=== PATIENT | male | born 1960 | race Caucasian/White ===

== ENCOUNTER → 2016-08-29 | Outpatient (CLI) | payer OTHER ==
[2016-08-29 10:13] LABS: Aty Lym Flag Slight; CH 31.4; CHCM 35.4; HCT 43.9 % (39.0-53.0); HDW 2.68; HGB 15.6 gm/dL (13.0-17.5); MCH 31.5 pg (25.0-35.0); MCHC 35.5 g/dL (31.0-37.0); MCV 88.8 fL (80.0-100.0); Mean Platelet Volume 6.9; RBC 4.95 m/uL (4.30-5.90); RDW 12.6 % (11.5-15.5); WBC 6.5 k/uL (3.8-10.6); WBC (Perox) 6.84
[2016-08-29 10:31] LABS: ALT 117 U/L (21-72); AST 60 U/L (17-59); Alkaline Phosphatase 141 U/L (38-126); Anion Gap 11 mmol/L; Blood Urea Nitrogen 11 mg/dL (9-20); Calcium 9.2 mg/dL (8.4-10.2); Carbon Dioxide 28 mmol/L (22-30); Chloride 102 mmol/L (98-107); Cholesterol 91 mg/dL (<200); Glucose 219 mg/dL (74-99); HDL Cholesterol 31 mg/dL (40-60); Non-African American GFR(MDRD) >60 (>60 ml/min/1.73 sqM); Potassium 4.6 mmol/L (3.5-5.1); Sodium 141 mmol/L (137-145); Total Bilirubin 0.8 mg/dL (0.2-1.3); Total Protein 6.7 g/dL (6.3-8.2); Triglycerides 154 mg/dL (<150)
[2016-08-29 10:42] LABS: Add Differential Manual Differential
[2016-08-29 10:43] LABS: Nucleated Red Blood Cells 0 /100 WBC (0-0); Polychromasia Present; Total Cells Counted 100
== END | disposition home or self-care (01) ==
LOC: LABWHC1 08:38
PROVIDERS: ATTEND Family Medicine
DX: Z00.00 Encounter for general adult medical examination without abnormal findings (principal); I10 Essential (primary) hypertension; E78.00 Pure hypercholesterolemia, unspecified; E11.65 Type 2 diabetes mellitus with hyperglycemia
CPT/HCPCS: 36415; 80053; 80061; 84153; 85025

== ENCOUNTER → 2018-12-01 | Outpatient (CLI) | payer OTHER ==
[2018-12-01 10:10] LABS: Basophils # (A) 0.1 k/uL (0-0.2); Basophils % (A) 1 %; Eosinophils # (A) 0.5 k/uL (0-0.7); Eosinophils % (A) 4 %; HCT 46.7 % (39.0-53.0); HGB 15.8 gm/dL (13.0-17.5); Lymphocytes # (A) 1.8 k/uL (1.0-4.8); Lymphocytes % (A) 18 %; MCH 30.1 pg (25.0-35.0); MCHC 33.8 g/dL (31.0-37.0); Mean Platelet Volume 6.7; Monocytes # (A) 0.6 k/uL (0-1.0); Monocytes % (A) 6 %; Neutrophils % (A) 69 %; Platelet Count 286 k/uL (150-450); RBC 5.25 m/uL (4.30-5.90); RDW 12.6 % (11.5-15.5); WBC 10.2 k/uL (3.8-10.6)
[2018-12-01 16:40] LABS: African American GFR (CKD) 115.7 (60.0-200.0); Albumin 4.5 g/dL (3.80-4.90); Albumin/Globulin Ratio 2.5 (1.60-3.17); Anion Gap 10.4 mmol/L (4.00-12.00); BUN/Creat Ratio 13.75 Ratio (12.00-20.00); Calcium 9.4 mg/dL (8.7-10.3); Carbon Dioxide 27.6 mmol/L (21.6-31.8); Chol/HDL Ratio 2.88; Globulin 1.8 g/dL (1.6-3.3); Potassium 4.5 mmol/L (3.5-5.5); Total Bilirubin 0.6 mg/dL (0.2-1.2); Total Protein 6.3 g/dL (6.2-8.2)
[2018-12-01 16:47] LABS: T4, Free (Free Thyroxine) 1.3 ng/dL (0.80-1.80)
== END ==
LOC: LABWHC1 09:14
PROVIDERS: ATTEND Family Medicine
DX: Z00.00 Encounter for general adult medical examination without abnormal findings (principal); E78.00 Pure hypercholesterolemia, unspecified; I10 Essential (primary) hypertension
CPT/HCPCS: 36415; 80053; 80061; 84153; 84439; 84443; 85025; 86803

== ENCOUNTER → 2019-03-07 | Outpatient (CLI) | payer OTHER ==
--- NOTE | 2019-03-07 15:18 | XR ---
EXAMINATION TYPE: XR chest 2V DATE OF EXAM: 03/07/2019 COMPARISON: NONE HISTORY: Hemoptysis and pneumonia. TECHNIQUE: Frontal and lateral views of the chest are obtained. FINDINGS: There is no focal air space opacity, pleural effusion, or pneumothorax seen. The cardiac silhouette size is within normal limits. Suggestion of some right lateral pleural thickening and lung level. The osseous structures are intact. IMPRESSION: Possible lateral right pleural thickening. No suspicious acute pulmonary process. Consid er further imaging workup with CT if symptoms of hemoptysis persist.
[2019-03-07 22:26] LABS: Hemoglobin A1C 5.9 % (4.0-6.0)
== END | disposition home or self-care (01) ==
LOC: RADXRMAIN 14:59
PROVIDERS: ATTEND Family Medicine
DX: R04.2 Hemoptysis (principal); R93.89 Abnormal findings on diagnostic imaging of other specified body structures; E11.9 Type 2 diabetes mellitus without complications; Z71.3 Dietary counseling and surveillance
CPT/HCPCS: 71046; 83036

== ENCOUNTER → 2020-08-12 | Outpatient (CLI) | payer OTHER ==
[2020-08-12 14:42] LABS: Basophils # (A) 0.06 X 10*3/uL (0.00-0.10); Basophils % (A) 0.9 %; Eosinophils # (A) 0.43 X 10*3/uL (0.04-0.35); Eosinophils % (A) 6.1 %; HCT 45.4 % (39.6-50.0); HGB 15.2 g/dL (13.0-17.0); Lymphocytes % (A) 27.1 %; MCH 30.6 pg (27.0-32.0); MCHC 33.5 g/dL (32.0-37.0); MCV 91.5 fL (80.0-97.0); Mean Platelet Volume 10.1 fL (9.5-12.2); Monocytes # (A) 0.65 X 10*3/uL (0.20-1.00); Monocytes % (A) 9.3 %; Neutrophils # (A) 3.94 X 10*3/uL (1.80-7.70); Neutrophils % (A) 56.3 %; Platelet Count 243 X 10*3/uL (140-440); RBC 4.96 X 10*6/uL (4.40-5.60); RDW 12.1 % (11.5-14.5)
[2020-08-12 14:51] LABS: African American GFR (CKD) 95.7 (60.0-200.0); Albumin 4.6 g/dL (3.80-4.90); Albumin/Globulin Ratio 2.3 (1.60-3.17); Calcium 9.4 mg/dL (8.7-10.3); Chol/HDL Ratio 3.43; LDL Cholesterol,Calculated 27.4 mg/dL (0.0-131.0); Non-African American GFR(CKD) 82.6 (60.0-200.0); Potassium 4.8 mmol/L (3.5-5.5); Prostate Specific Antigen 0.5 ng/mL (0.0-3.5); Total Bilirubin 0.6 mg/dL (0.3-1.2); Total Protein 6.6 g/dL (6.2-8.2); VLDL Calculation 45.6 mg/dL (5.00-40.00)
== END | disposition home or self-care (01) ==
LOC: LABWHC1 08:09
PROVIDERS: ATTEND Family Medicine
DX: Z00.00 Encounter for general adult medical examination without abnormal findings (principal); E78.00 Pure hypercholesterolemia, unspecified; E11.9 Type 2 diabetes mellitus without complications; I10 Essential (primary) hypertension
CPT/HCPCS: 36415; 80053; 80061; 84153; 84443; 85025

== ENCOUNTER → 2021-03-13 | Outpatient (CLI) | payer OTHER ==
--- NOTE | 2021-03-13 19:14 | US ---
EXAMINATION TYPE: US gallbladder DATE OF EXAM: 03/13/2021 COMPARISON: NONE CLINICAL HISTORY: 60-year-old male R10.11 ABD PAIN. Intermittent RUQ pain for 6 months. TECHNIQUE: Multiple sonographic images of the right upper quadrant are obtained. FINDINGS: EXAM MEASUREMENTS: Liver Length: 17.4 cm Gallbladder Wall: 0.2 cm CBD: 0.4 cm Right Kidney: 12.9 x 7.0 x 5.3 cm [employer] notes: Difficult exam due to patient body habitus. Pancreas: Only a small portion of the pancreatic head is seen. Remainder is obscured by bowel gas sh adowing. Liver: Borderline in size with a echogenic and attenuating parenchyma. No focal lesion is seen. Gallbladder: wnl Evidence for sonographic Evans's sign: No CBD: wnl Right Kidney: wnl IMPRESSION: 1. Borderline hepatomegaly (17.4 cm) with echogenic and attenuating liver parenchyma suggesting at le ast moderate hepatic steatosis. 2. No gallstones or biliary ductal dilatation.
== END | disposition home or self-care (01) ==
LOC: RADUSWWP 15:28
PROVIDERS: ATTEND Family Medicine
DX: K76.89 Other specified diseases of liver (principal); R16.0 Hepatomegaly, not elsewhere classified
CPT/HCPCS: 76705

== ENCOUNTER → 2021-04-25 | Outpatient (CLI) | payer OTHER ==
[2021-04-25 11:04] LABS: Basophils # (A) 0.08 X 10*3/uL (0.00-0.10); Eosinophils # (A) 0.27 X 10*3/uL (0.04-0.35); Eosinophils % (A) 3.4 %; HCT 47.7 % (39.6-50.0); HGB 15.8 g/dL (13.0-17.0); Lymphocytes # (A) 1.94 X 10*3/uL (0.90-5.00); Lymphocytes % (A) 24.7 %; MCHC 33.1 g/dL (32.0-37.0); MCV 90.5 fL (80.0-97.0); Mean Platelet Volume 9.9 fL (9.5-12.2); Monocytes # (A) 0.76 X 10*3/uL (0.20-1.00); Monocytes % (A) 9.7 %; Neutrophils # (A) 4.75 X 10*3/uL (1.80-7.70); Neutrophils % (A) 60.7 %; Platelet Count 240 X 10*3/uL (140-440); RBC 5.27 X 10*6/uL (4.40-5.60); RDW 11.9 % (11.5-14.5); WBC 7.84 X 10*3/uL (4.50-10.00)
[2021-04-25 11:18] LABS: African American GFR (CKD) 107.7 (60.0-200.0); Albumin 4.6 g/dL (3.8-4.9); Albumin/Globulin Ratio 2.06 (1.60-3.17); Anion Gap 10.6 mmol/L (10.00-18.00); BUN/Creat Ratio 13.78 Ratio (12.00-20.00); Blood Urea Nitrogen 12.5 mg/dL (9.0-27.0); Calcium 9.3 mg/dL (8.7-10.3); Carbon Dioxide 25.7 mmol/L (20.0-27.5); Globulin 2.2 g/dL (1.6-3.3); Non-African American GFR(CKD) 92.9 (60.0-200.0); Potassium 4.6 mmol/L (3.5-5.5); Total Bilirubin 0.6 mg/dL (0.30-1.20); Total Protein 6.8 g/dL (6.2-8.2)
== END | disposition home or self-care (01) ==
LOC: LABWHC1 07:18
PROVIDERS: ATTEND Family Medicine
DX: E11.9 Type 2 diabetes mellitus without complications (principal); K75.81 Nonalcoholic steatohepatitis (NASH); R10.11 Right upper quadrant pain
CPT/HCPCS: 36415; 80053; 84443; 85025

== ENCOUNTER → 2021-12-16 | Outpatient (CLI) | payer OTHER ==
[2021-12-16 14:51] LABS: ALT 53 U/L (10-49); AST 29 U/L (14-35); Albumin 4.6 g/dL (3.8-4.9); Alkaline Phosphatase 123 U/L (41-126); Bilirubin, Conjugated <0.20 mg/dL (0.20-0.40); Globulin 2.1 g/dL (1.6-3.3); Total Protein 6.7 g/dL (6.2-8.2)
[2021-12-16 17:25] LABS: Hepatitis A Antibody IgM Nonreactive (Nonreactive); Hepatitis B Core IgM Nonreactive (Nonreactive); Hepatitis B Surface Antigen Nonreactive (Nonreactive); Hepatitis C IgG Antibody Nonreactive (Nonreactive)
== END | disposition home or self-care (01) ==
LOC: LABWHC1 08:01
PROVIDERS: ATTEND Family Medicine
DX: I10 Essential (primary) hypertension (principal); R10.11 Right upper quadrant pain; K75.81 Nonalcoholic steatohepatitis (NASH); E11.9 Type 2 diabetes mellitus without complications; R80.9 Proteinuria, unspecified; E78.00 Pure hypercholesterolemia, unspecified
CPT/HCPCS: 36415; 80074; 80076

== ENCOUNTER → 2022-07-14 | Outpatient (CLI) | payer OTHER ==
[2022-07-14 10:55] LABS: Basophils # (A) 0.07 X 10*3/uL (0.00-0.10); Basophils % (A) 0.9 %; Eosinophils # (A) 0.37 X 10*3/uL (0.04-0.35); Eosinophils % (A) 4.8 %; HCT 48.2 % (39.6-50.0); Immature Grans, Automated 0.3 %; Lymphocytes # (A) 2.15 X 10*3/uL (0.90-5.00); Lymphocytes % (A) 27.7 %; MCH 29.6 pg (27.0-32.0); MCHC 33.2 g/dL (32.0-37.0); MCV 89.1 fL (80.0-97.0); Mean Platelet Volume 9.9 fL (9.5-12.2); Monocytes # (A) 0.76 X 10*3/uL (0.20-1.00); Monocytes % (A) 9.8 %; NRBC Per 100 WBC 0 /100 WBCS (0.0-0.0); Neutrophils # (A) 4.39 X 10*3/uL (1.80-7.70); Neutrophils % (A) 56.5 %; Platelet Count 240 X 10*3/uL (140-440); RBC 5.41 X 10*6/uL (4.40-5.60); RDW 12.1 % (11.5-14.5); WBC 7.76 X 10*3/uL (4.50-10.00)
[2022-07-14 11:37] LABS: Chol/HDL Ratio 3.01 Ratio
[2022-07-14 11:40] LABS: ALT 62 U/L (10-49); AST 29 U/L (14-35); African American GFR (CKD) 93.3 (60.0-200.0); Albumin 4.5 g/dL (3.8-4.9); Alkaline Phosphatase 107 U/L (41-126); BUN/Creat Ratio 14.55 Ratio (12.00-20.00); Blood Urea Nitrogen 14.7 mg/dL (9.0-27.0); Calcium 9.1 mg/dL (8.7-10.3); Carbon Dioxide 25.6 mmol/L (20.0-27.5); Chloride 105 mmol/L (96-109); Globulin 2.1 g/dL (1.6-3.3); Glucose 158 mg/dL (70-110); Non-African American GFR(CKD) 80.5 (60.0-200.0); Potassium 4.6 mmol/L (3.5-5.5); Sodium 139 mmol/L (135-145); Total Protein 6.6 g/dL (6.2-8.2)
== END | disposition home or self-care (01) ==
LOC: LABWHC1 07:17
PROVIDERS: ATTEND Family Medicine
DX: Z00.00 Encounter for general adult medical examination without abnormal findings (principal); Z12.5 Encounter for screening for malignant neoplasm of prostate; I10 Essential (primary) hypertension; E11.59 Type 2 diabetes mellitus with other circulatory complications; E11.69 Type 2 diabetes mellitus with other specified complication; E78.2 Mixed hyperlipidemia; E66.01 Morbid (severe) obesity due to excess calories; Z68.39 Body mass index [BMI] 39.0-39.9, adult; Z79.4 Long term (current) use of insulin
CPT/HCPCS: 36415; 80053; 80061; 84153; 84443; 85025

== ENCOUNTER 2022-08-13 07:47 | Day surgery (SDC) | payer OTHER ==
[2022-08-11 12:47] VITALS: BMI 38.4
[2022-08-13 08:11] VITALS: TEMP 97.5
[2022-08-13] MEDS ORDERED: LACTATED RINGERS 1,000 ML IV ONE (08:24)
[2022-08-13 08:27] LABS: Glucose,Whole Blood 91 mg/dL (70-110)
[2022-08-13] MEDS ORDERED: PROPOFOL 10 MG/ML 20 ML VIAL IV ONE (08:43)
--- NOTE | 2022-08-13 08:45 | P.GSHP ---
History of Present Illness H&P Date: 08/13/22 Chief Complaint: Screening colonoscopy This a 8-year-old male presents today for screening colonoscopy. Patient denies a significant GI complaints. Past Medical History Past Medical History: Diabetes Mellitus, Hyperlipidemia, Sleep Apnea/CPAP/BIPAP Additional Past Medical History / Comment(s): sleep apnea-NO CPAP History of Any Multi-Drug Resistant Organisms: None Reported Past Surgical History: Orthopedic Surgery Additional Past Surgical History / Comment(s): ganglion cyst, nasal surgery, RT ANKLE SX, COLONOSCOPY Past Anesthesia/Blood Transfusion Reactions: No Reported Reaction Smoking Status: Never smoker - Past Family History Sister(s) Family Medical History: Cancer Additional Family Medical History / Comment(s): REPRODUCTIVE Medications and Allergies Home Medications Medication Instructions Recorded Confirmed Type Atorvastatin [Lipitor] 40 mg PO HS 08/03/14 08/13/22 History Ibuprofen [Motrin] 800 mg PO Q6HR PRN #20 tab 08/03/14 08/13/22 Rx Insulin Glargine,Hum.rec.anlog 55 units SQ HS 08/03/14 08/13/22 History [Lantus Solostar] Loratadine [Claritin] 10 mg PO DAILY 08/03/14 08/13/22 History Dulaglutide [Trulicity] 1.5 mg SQ TU 08/11/22 08/11/22 History metFORMIN HCL [Glucophage] 850 mg PO DAILY 08/11/22 08/13/22 History lisinopriL [Zestril] 5 mg PO DAILY 08/13/22 08/13/22 History Allergies Allergy/AdvReac Type Severity Reaction Status Date / Time nickel Allergy Rash/Hives Verified 08/11/22 12:34 Surgical - Exam Vital Signs Temp Pulse Resp BP Pulse Ox 97.5 F L 87 16 155/92 97 08/13/22 08:05 08/13/22 08:05 08/13/22 08:05 08/13/22 08:05 08/13/22 08:05 - General well developed, well nourished, no distress - Eyes PERRL - ENT normal pinna - Neck no masses - Respiratory normal expansion - Cardiovascular Rhythm: regular - Abdomen Abdomen: soft, non tender Assessment and Plan Assessment: We'll perform screening colonoscopy
--- NOTE | 2022-08-13 09:04 | P.OP ---
Date of Procedure: 08/13/22 Preoperative Diagnosis: Screening colonoscopy Postoperative Diagnosis: Right colon polyp Procedure(s) Performed: Colonoscopy Anesthesia: MAC Surgeon: Hi Dickerson Pathology: other (Right colon polyp) Condition: stable Disposition: PACU Description of Procedure: The patient's placed on the endoscopy table in the lateral position. He received IV sedation. Digital rectal exam performed. This revealed no abnormalities. The flexible colonoscope was then placed patient anus and passed throughout the entire colon. The ileocecal valve was visualized. Cecum appeared normal. In the right colon there is a small sessile polyp. This removed with a cold forcep. Scope was withdrawn remainder the ascending colon, transverse colon and descending colon appeared normal. The sigmoid colon appeared normal. Scope was brought back the rectum and this was normal. Scope withdrawn for patient.
[2022-08-13 09:20] VITALS: BP 123/79; PULSE 82; RESP 16
== END 2022-08-13 09:36 | disposition home or self-care (01) ==
LOC: ORWHC2ENDO 07:47
PROVIDERS: ATTEND Surgery
DX: Z12.11 Encounter for screening for malignant neoplasm of colon (principal); D12.2 Benign neoplasm of ascending colon; E11.9 Type 2 diabetes mellitus without complications; E78.5 Hyperlipidemia, unspecified; G47.33 Obstructive sleep apnea (adult) (pediatric); Z98.890 Other specified postprocedural states; Z79.84 Long term (current) use of oral hypoglycemic drugs; Z79.899 Other long term (current) drug therapy
CPT/HCPCS: 88305; 45380; J2704

== ENCOUNTER → 2023-07-30 | Outpatient (CLI) | payer BC ==
--- NOTE | 2023-08-02 09:30 | XR ---
EXAMINATION TYPE: XR cervical spine comp DATE OF EXAM: 07/30/2023 2:07 PM CLINICAL INDICATION:Male, 63 years old with history of M5441,M542 RT low back pain. Cervicalgia.; [facility] COMPARISON: None. TECHNIQUE: The cervical spine was imaged in frontal, lateral, odontoid and bilateral oblique. FINDINGS: The osseous structures show normal alignment without evidence of an acute fracture. No significant ve rtebral body osteophytes. Mild facet joint arthritis.. The intervertebral disk spaces are preserved. Pedicles are intact. Soft tissues are within normal limits. The odontoid appears intact. IMPRESSION: 1. No fracture or dislocation. 2. Mild degenerative facet changes of the cervical spine.
--- NOTE | 2023-08-02 14:26 | XR ---
EXAMINATION TYPE: XR lumbosacral spine min 4V DATE OF EXAM: 07/30/2023 2:07 PM CLINICAL INDICATION:Male, 63 years old with history of M5441,M542 RT LBP, CERVICALGIA; [facility] COMPARISON: None TECHNIQUE: XR lumbosacral spine min 4V - Frontal, lateral , bilateral oblique and coned in L5-S1 late ral views of the spine. FINDINGS: No evidence of any acute osseous pathology. No evidence of loss of vertebral body height i s seen. Normal disc height. Moderate endplate spondylosis. There is normal alignment of the lumbar v ertebral bodies. IMPRESSION: 1. No acute fracture. 2. Mild to moderate multilevel endplate spondylosis.
== END | disposition home or self-care (01) ==
LOC: RADXRYALE 13:38
PROVIDERS: ATTEND Family Medicine
DX: M47.22 Other spondylosis with radiculopathy, cervical region (principal); M47.26 Other spondylosis with radiculopathy, lumbar region
CPT/HCPCS: 72050; 72110

== ENCOUNTER → 2023-11-03 | Outpatient (CLI) | payer BC ==
--- NOTE | 2023-12-07 13:48 | MR ---
Site ID synapse default Patient Yosef Pulliam ID [id number] Age/Gender: 63Y, M Order # N/A Procedure MR CERVICAL & LUMBAR SPINE WO CON Date 11/03/2023 7:27:32 PM EXAMINATION TYPE: MR contreras/lsbecky wo con DATE OF EXAM: 11/15/2023 COMPARISON: Cervical spine radiograph 07/30/2023, lumbosacral spine radiograph 07/30/2023 HISTORY: Neck and lower back pain, bilateral upper extremity and lower extremity radiculopathy. TECHNIQUE: Multiplanar, multisequence imaging of the cervical and lumbar spine is performed without I V contrast. CERVICAL SPINE: FINDINGS: Alignment: The cervical vertebral bodies have preserved heights. Alignment is within normal limits gi radha patient positioning. Bones: Bone signal is within normal limits. Cord: The spinal cord is unremarkable with regards to their signal intensity and morphology. Discs: Minimal multilevel disc desiccation is present. C2-C3: No significant disc pathology. The spinal canal is patent. No neural foraminal stenosis. C3-C4: Central disc bulge with minimal effacement of the anterior thecal sac. No neural foraminal st enosis. C4-C5: Central disc bulge with minimal effacement of the anterior thecal sac. No neural foraminal st enosis. C5-C6: No significant disc pathology. The spinal canal is patent. No neural foraminal stenosis. C6-C7: Central disc bulge with minimal effacement of the anterior thecal sac. No neural foraminal st enosis. C7-T1: No significant disc pathology. The spinal canal is patent. No neural foraminal stenosis. Other: None. IMPRESSION: 1. No evidence for disc herniation or significant spinal canal stenosis. 2. Minimal multilevel disc degeneration. LUMBAR SPINE: FINDINGS: The lumbar vertebral bodies do have preserved heights. Straightening of the normal lumbar lordosis. Grade 1 anterolisthesis of L4 on L5. No pars defect identified. Mild disc desiccation at L4 -L5. Anterior osteophyte at L4-L5. Type I Modic changes involving the anterior superior endplate of t he L4 vertebral body. The conus medullaris and the distal spinal cord do appear unremarkable with reg ards to their signal intensity and morphology. L1-L2: No significant disc pathology is identified. The spinal canal and neural foramen are patent. L2-L3: No significant disc pathology is identified. The spinal canal and neural foramen are patent. L3-L4: No significant disc pathology is identified. The spinal canal and neural foramen are patent. L4-L5: Grade 1 anterolisthesis with uncovering of the disc. Broad-based disc bulge with ligamentum fl avum buckling and bilateral facet arthropathy contribute to mild to moderate central canal stenosis. Mild left and [id number]-dlumswyo right neuroforaminal stenosis. L5-S1: The intervertebral disc appears round on its contour posteriorly without significant mass eff ect upon the thecal sac. Facet joints are enlarged. Neural canals do remain patent. Other significant findings: None. IMPRESSION: 1. L4-L5 grade 1 anterolisthesis with broad-based disc bulge and ligamentum flavum buckling contribu ting to [id number] central canal stenosis. Bilateral facet arthropathy demonstrated at this lev el with mild left and zvik-qc-vlyndofg right neuroforaminal stenosis. 2. No disc herniation identified.
== END | disposition home or self-care (01) ==
LOC: RADMRIMAIN 19:30
PROVIDERS: ATTEND Family Medicine
DX: M51.16 Intervertebral disc disorders with radiculopathy, lumbar region (principal); M43.16 Spondylolisthesis, lumbar region; M48.061 Spinal stenosis, lumbar region without neurogenic claudication
CPT/HCPCS: 72141; 72148

== ENCOUNTER → 2024-01-06 | Outpatient (CLI) | payer BC ==
[2024-01-06 09:02] VITALS: BP 122/83; PULSE 95; RESP 16; TEMP 97.1
--- NOTE | 2024-01-06 13:56 | P.PAINPG ---
PQRS Measure Charge Sheet Comment: HISTORY OF PRESENT ILLNESS: A 63 yr old male as a referral from Dr Lacey presents today w severe and chronic LBP > 3 mo secondary to radiculopathy, spondylosis and facet arthropathy without myelopathy for evaluation. Pt states pain level is provoked at 9 /10 in intensity, constant, localized in the lower lumbar spine, predominantly axial, achy in character w occasional shooting pain towards the L hip. Pain is provoked by lifting. Pain is alleviated by PT x 4 wks which ended in Sep 2023, physician guided home exercises 4 times weekly since Sep 2023, medications (Ibu), heat, manual massage, use of a LSO, repositioning and rest . PMH: OA, NIDDM II, Hyperlipidemia, TIFFANIE PSH: Colonoscopy (2022), Nasal Surgery, R Ankle Surgery, Ganglion Cystectomy SH: Negative x3 FH: Sis- Reproductive CA All: See list Meds: See list REVIEW OF ORGAN SYSTEMS: CONSTITUTIONAL: No fevers or chills. No recent weight loss. NEUROLOGICAL: + numbness and tingling along the distal extremities. No seizure disorders or headaches. MUSCULOSKELETAL: + pain PSYCHIATRIC: Denies current depression or suicidal thoughts. Physical Examinations : Constitutional : Cooperative , not in acute distress . Neurologic : Cranial nerve II to XII intact. No focal ne urological deficits. Psychiatric : alert & oriented x 3. Matching mood & appropriate affect. Judgment & insight intact. Musculoskeletal : Cervical Spine Motor strength in the deltoid and biceps: Normal right side. Normal Left side Motor strength biceps and the wrist extensors: Normal right side . Normal left side Motor strength in the triceps muscle: Normal right side. Normal left side Deep tendon reflexes: Normal at the biceps. Normal at Brachioradialis. Normal at triceps Vertebral body tenderness to deep pa lpation over Cervical facet loading test: positive bilaterally Spurling test: positive bilaterally Neck distraction test: positive bilaterally Kate sign: positive bilaterally Lumbar spine Motor strength lower extremities ,thigh and legs 5/5 Right side , 5/5 Left side Deep tendon reflexes : Normal Knee Jerk. Normal Ankle Jerk Vertebral body tenderness over L4 Hinton Test positive L L4-L5 Lumbar facet Loading Test: positive Right / positive Left Range of motion of the lumbar spine Flexion 30 degrees, extension 10 degrees Straight Leg Raise test: Left/ Right positive at degrees Yessica test: positive right / positive left. Severe tenderness over the Sacroiliac joint on the Right / Left sides Gaenslen test: positive bilaterally Seated flexion test: positive bilaterally. Sacral spine : Severe tenderness over the Sacroiliac joint: right side / left side Range of motion: Flexion of the lumbar spine <60 degrees Range of motion: Extension of the lumbar spine <20 degrees Gaenslen's Test positive Yessica test: positive right side / left side Thigh Thrust Test Sacral Thrust Test Imaging: MRI non contrast of cervical & lumbar spine from 11/03/23 reviewed Assessment/ Plan : C6-C7 radiculopathy, L4-L5 radiculopathy w mod spinal stenosis Recommendation of L TFESI L4-L5 #1. Risks, benefits of procedure discussed and patient verbalized understanding. Admits to anti- coagulant use or medical history of diabetes. Protocol for discontinuation/ continuation of medications jeffry procedure discussed. All questions answered. I have spent greater than 30 minutes on patient care today. Dr Blair was available by phone for the evaluation of this patient. The time was used to review the medical records including relevant urine studies and Prescription history (MAPs), review of the available imaging, evaluation and examination of the patient, coordination of care with the medical staff and if applicable referring physicians, as well as creation of the medical record PQRS Narrative: Smoking Status Never smoker Home Medications: Ambulatory Orders Atorvastatin [Lipitor] 40 mg PO HS 08/03/14 Ibuprofen [Motrin] 800 mg PO Q6HR PRN #20 tab 08/03/14 Insulin Glargine,Hum.rec.anlog [Lantus Solostar] 55 units SQ 08/03/14 Loratadine [Claritin] 10 mg PO DAILY 08/03/14 Dulaglutide [Trulicity] 1.5 mg SQ TU 08/11/22 metFORMIN HCL [Glucophage] 850 mg PO DAILY 08/11/22 lisinopriL [Zestril] 5 mg PO DAILY 08/13/22 Controlled Substance Measures - Controlled Substance Measures Is patient prescribed a controlled substance at discharge?: No
== END ==
LOC: PNWHC3 07:28
PROVIDERS: ATTEND Specialist
DX: M51.16 Intervertebral disc disorders with radiculopathy, lumbar region (principal); M48.02 Spinal stenosis, cervical region; M48.061 Spinal stenosis, lumbar region without neurogenic claudication; Z91.09 Other allergy status, other than to drugs and biological substances
CPT/HCPCS: 99211

== ENCOUNTER → 2024-04-21 | Outpatient (CLI) | payer BC ==
[2024-04-21 15:13] LABS: ALT 22 U/L (10-49); AST 19 U/L (14-35); Albumin 4.7 g/dL (3.8-4.9); Albumin/Globulin Ratio 1.96 Ratio (1.60-3.17); Alkaline Phosphatase 112 U/L (41-126); Blood Urea Nitrogen 13.5 mg/dL (9.0-27.0); Calcium 9.9 mg/dL (8.7-10.3); Carbon Dioxide 24.8 mmol/L (21.6-31.8); Chloride 104 mmol/L (96-109); Chol/HDL Ratio 5.11 Ratio; Globulin 2.4 g/dL (1.6-3.3); Glucose 90 mg/dL (70-110); LDL Cholesterol,Calculated 101.8 mg/dL (0.0-131.0); Potassium 4.6 mmol/L (3.5-5.5); Sodium 140 mmol/L (135-145); Total Bilirubin 0.7 mg/dL (0.3-1.2); Total Protein 7.1 g/dL (6.2-8.2)
== END | disposition home or self-care (01) ==
LOC: LABWHC1 11:58
PROVIDERS: ATTEND Family Medicine
DX: E78.00 Pure hypercholesterolemia, unspecified (principal); E11.69 Type 2 diabetes mellitus with other specified complication
CPT/HCPCS: 36415; 80053; 80061; 82043; 82570

== ENCOUNTER → 2024-07-26 | Outpatient (CLI) | payer BC ==
[2024-07-26 10:45] LABS: ALT 24 U/L (10-49); AST 19 U/L (14-35); Albumin 4.4 g/dL (3.8-4.9); Alkaline Phosphatase 109 U/L (41-126); Chol/HDL Ratio 4.85 Ratio; Globulin 2.1 g/dL (1.6-3.3); LDL Cholesterol,Calculated 93.2 mg/dL (0.0-131.0); Total Bilirubin 0.5 mg/dL (0.3-1.2); Total Protein 6.5 g/dL (6.2-8.2)
== END | disposition home or self-care (01) ==
LOC: LABWHC1 07:25
PROVIDERS: ATTEND Family Medicine
DX: E11.69 Type 2 diabetes mellitus with other specified complication (principal); E78.5 Hyperlipidemia, unspecified
CPT/HCPCS: 36415; 80061; 80076